=== PATIENT | female | born 1960 | race Caucasian/White ===

== ENCOUNTER 2022-01-29 13:26 | Emergency (ER) | payer OTHER ==
[~2022-01-29] VITALS: Ht 152.4 cm; Wt 68.0 kg
[2022-01-29 13:53] VITALS: BP 140/86
--- NOTE | 2022-01-29 14:00 | NUR ---
BIBS S/P SLIPPED AND FELL BACKWARDS AT HOME, VERBALIZES HITTING BACK OF HEAD AND RIGHT FOREARM. TO ER BED 11.
[2022-01-29] MEDS ORDERED: HYDROCODONE/APAP 5/325MG TABLET ONE (15:15)
[2022-01-29] MEDS ORDERED: IBUPROFEN 600 MG TABLET ONE (15:16)
[2022-01-29] MEDS ORDERED: IBUPROFEN 600 MG TABLET PO ONE (15:30)
[2022-01-29] MEDS ORDERED: HYDROCODONE/APAP 5/325MG TABLET PO ONE (15:30)
[2022-01-29] MEDS ORDERED: HYDR-3972 PO (16:06)
[2022-01-29] MEDS ORDERED: IBUP-1957 PO (16:06)
--- NOTE | 2022-01-29 16:23 | NUR ---
TECH AT BEDSIDE FOR SPLINT APPLICATION
--- NOTE | 2022-01-29 16:31 | NUR ---
Patient discharged to home in stable condition. Written and verbal after care instructions given. Patient verbalizes understanding of instruction. Prescriptions electronically sent.
== END 2022-01-29 16:32 | disposition home or self-care (01) ==
LOC: ER 13:31
DX: S52.501A Unspecified fracture of the lower end of right radius, initial encounter for closed fracture (principal); S52.611A Displaced fracture of right ulna styloid process, initial encounter for closed fracture; S09.90XA Unspecified injury of head, initial encounter; W01.0XXA Fall on same level from slipping, tripping and stumbling without subsequent striking against object, initial encounter; Y93.89 Activity, other specified; Y92.89 Other specified places as the place of occurrence of the external cause; Y99.8 Other external cause status
CPT/HCPCS: 70450-TC; 73110

== ENCOUNTER 2022-03-18 16:19 | Emergency (ER) | payer OTHER ==
[~2022-03-18] VITALS: Ht 162.6 cm; Wt 61.2 kg
[~2022-03-18 16:19] MED LIST: HYDR-3972 PO; IBUP-1957 PO
--- NOTE | 2022-03-18 17:26 | NUR ---
BIBS C/O HEADACHE ON AND OFF FOR ONE MONTH AND PT STATES THAT SHE HAS BEEN FEELING ANXIOUS. PT IS A&OX4, ABLE TO AMBULATE ON HER OWN. ATTACHED TO MONITOR. DR ADAMS AT BEDSIDE, AWAITING MD ORDERS.
--- NOTE | 2022-03-18 17:49 | NUR ---
PT TAKEN TO CT VIA [facility]
[2022-03-18] MEDS ORDERED: LORAZEPAM 1 MG TABLET ONE (17:59)
[2022-03-18] MEDS ORDERED: LORAZEPAM 1 MG TABLET PO ONE (18:00)
[2022-03-18] MEDS ORDERED: ACETAMINOPHEN 325 MG TABLET ONE (18:00)
[2022-03-18] MEDS ORDERED: ACETAMINOPHEN 325 MG TABLET PO ONE (18:00)
[2022-03-18 19:15] VITALS: BP 138/89
--- NOTE | 2022-03-18 19:15 | NUR ---
Patient discharged to home in stable condition. Written and verbal after care instructions given. Patient verbalizes understanding of instruction.
== END 2022-03-18 19:17 | disposition home or self-care (01) ==
LOC: ER 16:39
DX: R51.9 Headache, unspecified (principal); Z79.899 Other long term (current) drug therapy
CPT/HCPCS: 70450-TC